=== PATIENT | female | born 1950 | race Caucasian/White ===

== ENCOUNTER 2022-09-07 10:13 | Outpatient (RCR) | payer MEDICARE, BC, SELFPAY ==
--- NOTE | 2022-09-07 11:09 | PT.OPEX ---
INITIAL EVAL MEDICARE REQUIRES SIGNAUTRE PT [facility] Outpatient Eval PT [facility] Outpatient Eval Start: 09/07/22 07:34 Freq: Status: Active Protocol: Document 09/07/22 07:37 EBONY (Rec: 09/07/22 11:08 EBONY [id number]) E-signed By Eliazar Chavez DPT Physical Therapy Outpatient Evaluation Insurance Information Insurance Name Medicare B Medical Diagnosis L knee OA, left knee TKA Treating Diagnosis muscle weakness, L knee pain Referring MD eliu lubin Subjective Subjective Khadra comes into clinic for a pre op visit for a L TKA on 09/14/22. Has had a TKA before for her R knee in 2008-. States the [facility] in does not require any steps to get into the house. Mentions everything inside the home is on one level as well. Her will be at home in order to provide assistance . Will be having her follow ups post operatively in [facility] at a outpatient clinic. Her biggest goals are to improve walking and ADLS Date of Surgery (If applicable) 09/14/22 Current Work Status Retired Objective Other/Pertinent Objective GAIT/FUNCTIONAL MOBILITY ambulates with decreased pace, decreased TKE on L KNEE ROM R 0-115 L 7-102 LLE MMT: Hip flexion: R 5/5 L 4-/5 Hip abduction: R 4/5 L4- /5 Knee flexion: R 4+/5 L 4/5 Knee extension: R 4+/5 L4- /5 TX: long sitting quad set x10 w/5 sec isometric hold performed ankle pumps x10 supine hamstring sets x10 w/5 sec isometric hold supine SAQ x10 w/cueing for isometric contraction at top of arc of motion with slow eccentric supine SLR flexion x10 w/ cueing for isometric contraction at top of arc of motion with slow eccentric supine heel slide x 10 w/3-5 sec hold at end range holding for stretch seated LAQ x10 w/cueing for isometric contraction at top of arc of motion with slow eccentric seated heel slides x5 with 30 sec holds into stretch passive knee ext stretch x 1 min - education on longer duration post-op educated on frequency to perform HEP post operatively Assessment Assessment/Impression Pt is a 72 yr old female who presents with concerns of L knee pain. Signs and symptoms likely indicating / consistent with L knee OA . Patient also has notable objective findings including impaired gait mechanics, limited ROM, impaired balance, decreased strength also likely contributing to the problem. Patient is a good candidate for skilled therapy to target deficits described above. Skilled PT intervention is necessary for use of therapeutic exercise manual therapy, neuromuscular re- education, gait training, and therapeutic activity. Functional impairments include difficulty with: walking, standing, transfers . See appropriate sections of PT eval for complete list of goals and POC. D/C plan and criteria is for pt to achieve the goals as listed below or until max rehab potential is met. Pt was agreeable with plan of care and goals established Plan of Care Rehabilitation Potential Good Physical Therapy Goals STG Pt will be independent with HEP within 1 visit to allow for independence and continued improvement past formal therapy-met Coordination/Communication With Referral Source Treatment Plan/Direct Interventions Gait Training,Joint Mobilization,Manual Therapy, Neuromuscular Re-ed,Self-Care/ Home Management,Therapeutic Activities,Therapeutic Exercises Frequency/Duration 1 visit for pre op- follow up elsewhere Patient Will Be Discharged From Therapy Independent w/HEP Evaluation Billing Untimed Code Treatment Minutes 15 Complexity Low Certification Information Initial Certification Date 09/07/22 Ending Certification Date 12/01/22 Physician Comment/Change : Physician NPI Number #
== END 2023-02-03 23:59 | disposition home or self-care (01) ==
PROVIDERS: PCP Nurse Practitioner Family; Visit Provider Orthopaedic Surgery
DX: Z01.818 Encounter for other preprocedural examination (principal); M17.12 Unilateral primary osteoarthritis, left knee; M62.81 Muscle weakness (generalized); M25.562 Pain in left knee; Z96.651 Presence of right artificial knee joint; Z51.89 Encounter for other specified aftercare
CPT/HCPCS: 97110; 97161

== ENCOUNTER 2022-09-14 08:34 | Day surgery (SDC) | payer MEDICARE, BC, SELFPAY ==
[2022-09-14] VITALS (22 sets, daily range): BP systolic 101–178; BP diastolic 47–90; PULSE 50–72; RESP 12–20; TEMP 35.6–36.4; O2SAT 92–99; BMI 29.0
[2022-09-14] MEDS: LACTATED RINGERS 1000 ML 1,000 ML 100 ML IV (08:45)
[2022-09-14] MEDS: OXYCODONE (CR) 10 MG TAB.ER.12H PO (09:25)
[2022-09-14] MEDS: SODIUM CHLORIDE 0.9 % (FLUSH) 10 ML SYRINGE IVF (09:26)
[2022-09-14] MEDS: ACETAMINOPHEN 500 MG TABLET 1000 MG PO ×3 (09:26→22:18)
--- NOTE | 2022-09-14 09:31 | W.ANESCHARGE ---
Anesthesia Charges Start Date/Time Anesthesia Start Date: 09/14/22 Anesthesia Start Time: 10:13 Stop Date/Time Anesthesia Stop Date: 09/14/22 Anesthesia Stop Time: 12:24 Summary Extremes of Age - Over 70 or under 1: MDA
[2022-09-14] MEDS: fentaNYL 100 MCG/2 ML inj IVP (09:41)
[2022-09-14] MEDS: MIDAZOLAM HCL 1 MG/ML inj IVP (09:41)
--- NOTE | 2022-09-14 09:46 | SUR.PREOP ---
TIME?OUT:?0940 PT/RN/MDA?VERIFICATION?OF?SURGICAL?SITE Left Knee,?PROCEDURE Adductor Block,?AND?CONSENT OBTAINED?PRIOR?TO?INVASIVE?PROCEDURE.
--- NOTE | 2022-09-14 09:49 | P.NB_ITS ---
Nerve Block Nerve Block Time Seen by Provider: 09:44 Date Seen: 09/14/22 Type of block requested by surgeon for post-operative analgesia: adductor canal Side: left Time out performed: Yes Verification of patient name: Yes Verification of date of : Yes Site marking: site marked Name of person performing procedure: Guilherme Continuous monitoring Was continuous monitoring of O2 sat, B/P, monitoring coordinator, recorded every 15 minutes?: Yes Procedure Checklist: sterile prep, needles and gloves Ultrasound guided. Images saved: Yes Medications given in 5ml increments after negative aspiration: Ropivicaine %: 0.5 mL: 20 Needle gauge: 20 Decadron (mg): 10 Precedex (mcg): 25 Patient tolerated procedure well: Yes Additional comments: Needle noted adjacent to nerve Block Charges Block Charge (with Pro Fee): Femoral Nerve Use of Ultrasound Machine for Block: Yes- US Guidance/pain block
--- NOTE | 2022-09-14 09:49 | W.PM.NB ---
Nerve Block Nerve Block Time Seen by Provider: 09:45 Date Seen: 09/14/22 Type of block requested by surgeon for post-operative analgesia: geniculars Side: left Time out performed: Yes Verification of patient name: Yes Verification of date of : Yes Site marking: site marked Name of person performing procedure: Guilherme Continuous monitoring Was continuous monitoring of O2 sat, B/P, padding machine operator, recorded every 15 minutes?: Yes Procedure Checklist: sterile prep, needles and gloves Medications given in 5ml increments after negative aspiration: Ropivicaine %: 0.5 mL: 9 Needle gauge: 25 Patient tolerated procedure well: Yes Block Charges Block Charge (with Pro Fee): Genicular Nerve Block Use of Ultrasound Machine for Block: No
[2022-09-14] MEDS: CEFAZOLIN 2 GM INJ IVP (10:23)
[2022-09-14] MEDS: TRANEXAMIC ACID 100 MG/ML INJ 1000 MG IV (10:28)
--- NOTE | 2022-09-14 11:30 | CRLHL7_ITS ---
For Patients: As a result of the Cures Act, medical imaging exams and procedure reports are released immediately into your electronic medical record. You may view this report before your referring provider. If you have questions, please contact your health care provider. INDICATION: Postoperative total knee arthroplasty TECHNIQUE: Knee radiograph 2 views left COMPARISON: 03/18/2021 FINDINGS: Bone: No acute fractures or aggressive bone lesions are identified. Joint: The patient is status post a total knee arthroplasty with patellar resurfacing. No significant knee effusion is seen. Soft tissue: Anterior skin, subcutaneous gas and joint gas are present from recent surgery. No radiopaque foreign bodies are seen. IMPRESSION: 1. There is an unremarkable postoperative appearance of the knee arthroplasty. Dictated by: Erik De Leon MD @ 09/14/2022 13:15:53 (Electronically Signed)
--- NOTE | 2022-09-14 11:32 | P.ORPRC_ITS ---
Procedure Note Date of procedure: 09/14/22 Procedure: PREOPERATIVE DIAGNOSIS: Left knee osteoarthritis POSTOPERATIVE DIAGNOSIS: Left knee osteoarthritis NAME OF OPERATION: Left total knee arthroplasty SURGEON: Germain Dow MD BARREL REAMER: Ivette Dorado PA-C ANESTHESIA: Spinal ESTIMATED BLOOD LOSS: 0 mL COMPLICATIONS: None SPECIMENS: None DRAINS: None PREOPERATIVE ANTIBIOTICS: Ancef 2 grams IMPLANTS: 1. J&J Attune #4 posterior stabilized femur 2. #4 fixed-bearing tibia 3. #4 posterior stabilized, 5 mm fixed-bearing polyethylene 4. 38 patella INDICATIONS: The patient is a 72-year-old with a longstanding history of severe, unrelenting left knee pain secondary to end-stage (grade IV) left knee osteoarthritis. Despite appropriate nonoperative management, including activity modification, anti-inflammatories, ybau-zau-qrqhoef pain medication, bracing, physical therapy, and injections they continue to have pain and disability. Operative intervention was offered. The risks, benefits and expected outcomes were discussed in detail. These included but were not limited to: Infection, bleeding, injury to blood vessel or nerve, venous thromboembolism. All questions were answered to their satisfaction. Use of an assistant to the director was necessary throughout the case for patient positioning and safety, soft tissue retraction, and closure. PROCEDURE: Spinal anesthesia was administered. The patient was placed supine on the operating table. The assistant to the director made sure the patient was positioned appropriately. The lower extremity was prepped and draped in the usual sterile fashion. The limb was exsanguinated with the Joshua bandage. The pneumatic tourniquet was inflated to 300 mmHg. A standard anterior incision was made with the knee in flexion. Subcutaneous dissection was sharply taken through fascial layer #1. Full-thickness medial and lateral flaps were elevated. The assistant to the director retracted the soft tissues and protected them throughout the case. A standard medial parapatellar approach was made. The patella was everted. The infrapatellar fat pad was preserved. The m enisci and cruciate ligaments were sharply d?brided. Marginal osteophytes were d?brided with the rongeur. The drill was used to penetrate the femoral canal. The canal was aspirated and irrigated with pulse lavage. The intramedullary femoral guide was placed for a 5-degree valgus cut, removing 10 mm off the distal femur. The saw was used to make the cut. Whitesides line and the trans epicondylar axis were marked. The femoral sizing guide was pinned onto the distal femur. Three degrees of external rotation nicely parallels the transepicondylar axis. Pins were placed for posterior referencing. The four-in-one cutting guide was pinned onto the distal femur. The anterior, posterior, and chamfer cuts were made. The assistant to the director protected the collateral ligaments. The box cutting guide was pinned. The box cuts were made. The boxed trial was placed and was an excellent fit. Drill holes for the lugs were made. Attention was then turned to the proximal tibia. The extramedullary tibial guide was placed for a neutral varus/valgus cut with 5 degrees of posterior slope, removing 1 mm based off the medial tibial surface. The assistant to the director protected the collateral ligaments and the neurovascular bundle. The saw was used to make the cut. Trial components were placed. The knee was nicely balanced in both flexion and extension. The trial components were removed. The tray was placed in appropriate rotation, parallel to our tibial cutting pins. It was pinned by the assistant to the director and the drill and the punch were used. The tray was removed. The punch was used again. We placed a bone plug in the femoral canal. Attention was then turned to the patella. [place] patellar thickness was 21 mm. The lobster claw resection guide was used with the 7.5 mm afshin. The saw was used to make the cut. Drill holes were made by the assistant to the director. The trial was placed and was an excellent fit. Cancellous surfaces were irrigated with pulse lavage and thoroughly dried by the assistant to the director. We cemented the tibial component, then the femoral component. We impacted the 5 mm polyethylene onto the tibial tray. The knee was brought into full extension. We then cemented the patellar component. Excessive cement was removed. The cement was allowed to harden. The knee was taken through a range of motion and was found to be nicely balanced in both flexion and extension. The patella tracks centrally. The assistant to the director did a three minute dilute Betadine solution soak. The assistant to the director irrigated the wound with 3 liters of normal saline via pulse lavage. The assistant to the director reapproximated the extensor mechanism with #1 Vicryl in an interrupted [id number] fashion. The assistant to the director then ran the extensor mechanism with a #1 PDO Stratafix. The assistant to the director closed the subcutaneous tissues with a 3-0 Stratafix and the skin with a running 3-0 Stratafix in a subcuticular fashion. Glue was used to seal the skin. The assistant to the director placed a dry dressing, EMILIANO stocking, and Polar Care. Sponge and needle counts were correct x2. The patient tolerated the procedure well. There were no apparent complications. They were carefully transferred to the hospital bed and taken to the postanesthesia care unit in satisfactory condition. PLAN: The patient will be mobilized with physical therapy. Aspirin will be used for DVT prophylaxis. They will be discharged to home once medically appropriate.
--- NOTE | 2022-09-14 12:25 | P.ANES_ITS ---
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
--- NOTE | 2022-09-14 14:46 | PC.NURSE ---
Patient came to the floor from PACU around 1300. Alert and orientated. is at bedside. Left knee dressing is clean, dry, and intact and is currently denying any pain. Tolerating regular diet with no nausea or vomiting.
[2022-09-14] MEDS: CEFAZOLIN 1 GM in 0.9 % SODIUM CHLORIDE Mini-bag 100 ML IVPB (16:08)
--- NOTE | 2022-09-14 17:11 | PC.NURSE ---
PATIENT PLEASANT AND COOPERATIVE, ALERT AND ORIENTED, UP SBA WITH WALKER AND BELT TOLERATING WELL, REPORTING NO PAIN TO LEFT KNEE, DRESSING CDI, CYRO CUFF TO SITE, TOLERATING REGULAR DIET NO NAUSEA OR VOMITING, USING IS TO 2500.
--- NOTE | 2022-09-14 17:38 | PM.IMCN1 ---
Date of Consult Patient: Debra Patient Consult date: 09/14/22 Requesting Physician: Orthopedics Primary Care Provider: Marya Serrano CNP Consult Narrative Reason for consult: Perioperative management of HTN, HLD, GERD Narrative: Khadra Huertas is a 72 year old woman with end-stage left gonarthrosis who presents for elective left total knee arthroplasty. This is undertaken successfully per Dr. Dow, orthopedic surgeon, [facility], on 09/14/2022. No apparent perioperative complications. Pain well managed at this time. Review of Systems Status of ROS: Reports: 10 or more systems reviewed and unremarkable except as noted in History and below Narrative: Denies chest heaviness, pressure, tightness, or pain. Denies dyspnea at rest, paroxysmal nocturnal dyspnea, orthopnea. Denies cough. Denies syncope or near-syncope. Denies palpitations or chest fluttering. Denies nausea or vomiting. Denies edema. Has worked with her shearer helper, methotrexate has been on hold will continue to be on hold for a while. Will continue to work with her shearer helper. Bowel bladder function are satisfactory. Has hardly taking her Linzess as of lately for constipation due to the fact that she has not needed to do so. Has had multiple prior joint replacement surgeries. Tolerated these without any complications. No recent fevers, rigors, diaphoresis. No recent illnesses. No recent trauma, injury, or travel. Designates her as her power of personal injury attorney for health should that be required. Requests full resuscitation in the event of cardiopulmonary demise. [facility] Medical History (Updated 09/14/22 @ 17:47 by Cory Pearce MD) Anxiety Central spinal stenosis Chronic pain disorder Closed fracture of left distal radius Colonic polyp Degenerative joint disease Depression Fibromyalgia Foraminal stenosis of cervical region GERD with esophagitis Hyperlipidemia Hypertension Insomnia Irritable bowel syndrome Neck pain Osteopenia Osteoporosis Rheumatoid arthritis Rosacea Tubular adenoma Surgical History H/O cervical discectomy History of appendectomy History of carpal tunnel release of both wrists History of hysterectomy History of right hip replacement History of thoracic spinal fusion History of tonsillectomy and adenoidectomy S/P cervical spinal fusion (~01/2015) Status post open reduction and internal fixation (ORIF) of fracture Status post reverse total arthroplasty of left shoulder (04/05/16) Status post total right knee replacement Family History Father Lung cancer Mother Alzheimers disease Sister Uterine cancer Social History Smoking Status: Former smoker Do you use any of these nicotine containing products: None How often do you have a drink containing alcohol: monthly or less Alcohol type: wine How many standard drinks containing alcohol do you have on a typical day: 1 or 2 How often do you have six or more drinks on one occasion: Never AUDIT-C Alcohol total score: 1 Non-prescribed substance use: denies use Caffeine: Yes (coffee, 1 cup/am) Meds Home Medications and Allergies Home Medications Medication Instructions Recorded Confirmed Type amlodipine 10 mg tablet 10 mg PO 03/26/22 06/30/22 History amoxicillin 500 mg capsule 500 mg PO QDAY 03/26/22 06/30/22 History atenolol 25 mg tablet 25 mg PO DAILY 03/26/22 09/14/22 History atorvastatin 10 mg tablet 10 mg PO 03/26/22 06/30/22 History calcium carbonate 600 mg-vitamin 1 tab PO BID 03/26/22 09/14/22 History D3 20 mcg (800 unit) tablet folic acid 1 mg tablet 1 mg PO DAILY 03/26/22 09/14/22 History methotrexate sodium 2.5 mg tablet 2.5 mg PO .Every 7 Days 03/26/22 09/14/22 History multivitamin 1 tab PO QDAY 03/26/22 09/14/22 History polyethylene glycol 3350 17 17 g PO DAILY 03/26/22 09/14/22 History gram/dose oral powder sertraline 100 mg tablet 100 mg PO DAILY 03/26/22 09/14/22 History zolpidem 5 mg tablet 5 mg PO .Bedtime as needed PRN 03/26/22 09/14/22 History Allergies Allergy/AdvReac Type Severity Reaction Status Date / Time tolmetin Allergy tongue Verified 09/14/22 08:48 swelling Exam Narrative: Exam Narrative: Appears comfortable and in no acute distress. Vision and hearing are grossly normal. Alert, oriented to self, place, time, situation. Friendly, cooperative, articulate. Mood and affect are congruent. Neck is supple. No JVD or hepatojugular reflux. Lungs are clear to auscultation without wheezing, rhonchi, or rales. No CVA tenderness. Heart tones with regular rhythm, occasional extra beat. No murmur, gallop, or rub. Abdomen with active bowel sounds, soft, nontender. Extremities without edema. Const: Vital Signs, click to edit/add: Vital Signs - 24 hr 09/14/22 09:03 09/14/22 09:35 09/14/22 09:40 Temperature 97.4 F L Pulse Rate 55 L 58 L 57 L Pulse Rate [Right Pulse Oximeter] Respiratory Rate 16 16 16 Blood Pressure 146/74 H 142/86 H 132/62 Blood Pressure [Ri ght Arm] Pulse Oximetry 96 96 95 Oxygen Delivery Me thod Room Air Nasal Cannula Nasal Cannula Oxygen Flow Rate 2 2 09/14/22 09:45 09/14/22 12:28 09/14/22 12:34 Temperature 97.1 F L Pulse Rate 58 L 55 L 52 L Pulse Rate [Right Pulse Oximeter] Respiratory Rate 16 20 20 Blood Pressure 127/62 110/57 L 115/61 Blood Pressure [Ri ght Arm] Pulse Oximetry 96 98 99 Oxygen Delivery Me thod Nasal Cannula OxyMask OxyMask Oxygen Flow Rate 2 3 3 09/14/22 12:38 09/14/22 12:45 09/14/22 12:50 Temperature 97.2 F L Pulse Rate 52 L 55 L 51 L Pulse Rate [Right Pulse Oximeter] Respiratory Rate 20 20 20 Blood Pressure 126/47 L 126/76 125/59 L Blood Pressure [Ri ght Arm] Pulse Oximetry 92 96 99 Oxygen Delivery Me thod Room Air Room Air Nasal Cannula Oxygen Flow Rate 2 09/14/22 12:56 09/14/22 13:03 09/14/22 13:15 Temperature 96.3 F L Pulse Rate 52 L 50 L Pulse Rate [Right Pulse Oximeter] 50 L Respiratory Rate 20 14 12 Blood Pressure 138/62 Blood Pressure [Ri ght Arm] 122/90 H 139/85 Pulse Oximetry 98 97 Oxygen Delivery Me thod Nasal Cannula Nasal Cannula Nasal Cannula Oxygen Flow Rate 2 2 1 09/14/22 13:30 09/14/22 14:30 09/14/22 13:45 Temperature 96.1 F L Pulse Rate Pulse Rate [Right Pulse Oximeter] 56 L 57 L 57 L Respiratory Rate 14 14 14 Blood Pressure Blood Pressure [Ri ght Arm] 138/60 149/80 H 145/61 H Pulse Oximetry 95 96 97 Oxygen Delivery Me thod Nasal Cannula Nasal Cannula Nasal Cannula Oxygen Flow Rate 1 1 1 09/14/22 14:00 09/14/22 15:00 09/14/22 15:00 Temperature 96.6 F L Pulse Rate Pulse Rate [Right Pulse Oximeter] 55 L 50 L Respiratory Rate 14 16 Blood Pressure Blood Pressure [Ri ght Arm] 140/64 H 151/72 H Pulse Oximetry 97 95 95 Oxygen Delivery Me thod Nasal Cannula Nasal Cannula Oxygen Flow Rate 1 1 09/14/22 16:00 09/14/22 17:00 Temperature 97.3 F L Pulse Rate Pulse Rate [Right Pulse Oximeter] 62 63 Respiratory Rate 16 16 Blood Pressure Blood Pressure [Ri ght Arm] 140/63 H 101/59 L Pulse Oximetry 93 92 Oxygen Delivery Me thod Nasal Cannula Room Air Oxygen Flow Rate 1 Assessment and Plan Assessment and plan (1) Osteoarthritis of left knee: Status: Acute (2) Status post total left knee replacement: Problem comment: 09/14/2022, Dr. Dow Status: Acute (3) Hyperlipidemia: Status: Acute Assessment and Plan: Will continue with her atorvastatin. (4) Hypertension: Status: Acute Assessment and Plan: Will resume her antihypertensive medications, amlodipine and hydrochlorothiazide. (5) GERD with esophagitis: Status: Acute Assessment and Plan: Continue with her omeprazole. (6) Anxiety: Status: Acute Assessment and Plan: Continue with her sertraline. (7) Depression: Status: Acute Assessment and Plan: Continue with her sertraline. Plan 1. The hospitalist service will be available to support the orthopedic surgery team if needed during the course hospitalization in helping the patient with her medical conditions as specified above and as needed. 2. Anticipate patient be able to return home tomorrow without any adjustment in her medication regimen for the conditions specified above. 3. Agree with perioperative prophylactic antibiotics. 4. Agree with postoperative venous thromboembolism prophylaxis as specified per the orthopedic surgery team.
[2022-09-14] MEDS: ATORVASTATIN 10 MG TABLET PO (20:26)
[2022-09-14] MEDS: SENNOSIDES 1 TAB TABLET 2 TAB PO (20:26)
[2022-09-14] MEDS: ASPIRIN 81 MG TABLET EC PO (20:26)
[2022-09-15] MEDS: 0.9 % SODIUM CHLORIDE 250 ml IV (00:20)
[2022-09-15] MEDS: CEFAZOLIN 1 GM in 0.9 % SODIUM CHLORIDE Mini-bag 100 ML IVPB ×2 (00:20→08:06)
[2022-09-15 03:00] VITALS: BP 162/67; PULSE 61; RESP 16; TEMP 36.3; O2SAT 91
[2022-09-15] MEDS: ACETAMINOPHEN 500 MG TABLET 1000 MG PO (03:47)
--- NOTE | 2022-09-15 05:15 | PC.NURSE ---
[id number] Pt slept well during night, rating pain 0/10 throughout shift, scheduled tylenol administered, no PRN pain meds needed at this time. Educated pt on importance of telling nurse when pain sensation is felt to begin pain management to keep pain at a tolerable level. Dressing to L knee C/D/I, cyro cuff to site throughout shift. Ambulating to BR with walker, GB, SBA, her L knee did buckle twice while ambulating, pt able to catch herself with nurse at side. denies N/V.
[2022-09-15 06:41] LABS: Basophils Percent Auto 0.1 % (0.0-3.0); Hematocrit 39.1 % (33.0-51.0); Immature Granulocytes Pct Auto 0.1 %; Lymphocytes Percent Auto 9.4 % (20-44); Mean Corpuscular HGB Conc 33 gm/dL (32-36); Mean Corpuscular Hemoglobin 31 pg (26-34); Mean Corpuscular Volume 92 fL (80-100); Monocytes Percent Auto 8.4 % (0.0-11.0); Platelet Count* 275 K/uL (140-440); RDW Coefficient of Variation % 14.2 % (11.5-15.5); Red Blood Count 4.23 m/uL (4.00-5.20)
[2022-09-15 06:48] LABS: Slide Review Reflex No
[2022-09-15 07:00] VITALS: BP 153/69; PULSE 57; RESP 14; TEMP 36.3; O2SAT 96
[2022-09-15 07:00] LABS: Sodium* 137 mmol/L (135-149)
[2022-09-15 07:01] LABS: Potassium* 3.8 mmol/L (3.6-5.1)
[2022-09-15 07:04] LABS: Blood Urea Nitrogen* 12 mg/dL (7-30); Creatinine* 0.4 mg/dL (0.5-1.5); Est. Creatinine Clearance* 36.53; Estimated Glomerular Filt Rate 105 ml/min
[2022-09-15 07:08] LABS: INR 1.03 (0.91-1.10); Prothrombin Time 14.2 Seconds
--- NOTE | 2022-09-15 08:48 | PM.ORPN ---
Subjective Subjective Time Seen by Provider: 07:45 Date Seen: 09/15/22 Principal diagnosis: Left total knee arthroplasty 09/14/2022 Interval history: Khadra is doing well this morning. She will discharge to home later today. She denies shortness of breath, dizziness, nausea, vomiting, lightheadedness. Ortho Exam Narrative Exam Narrative: Alert and oriented x3. Patient is in no acute distress. Converses without labored breathing. Hearing is grossly intact. Ambulates with a walker. Examination of the left knee shows the dressing is intact, no erythema or ecchymosis. No sign of infection. No warmth. Mild effusion. Mild soft tissue edema. Bilateral calves are soft and nontender. CMS intact left lower extremity. Const Vital Signs, click to edit/add: Vital Signs - 24 hr 09/14/22 09:03 09/14/22 09:35 09/14/22 09:40 Temperature 97.4 F L Pulse Rate 55 L 58 L 57 L Pulse Rate [Right Pulse Oximeter] Respiratory Rate 16 16 16 Blood Pressure 146/74 H 142/86 H 132/62 Blood Pressure [Right Arm] Pulse Oximetry 96 96 95 Oxygen Delivery Method Room Air Nasal Cannula Nasal Cannula Oxygen Flow Rate 2 2 09/14/22 09:45 09/14/22 12:28 09/14/22 12:34 Temperature 97.1 F L Pulse Rate 58 L 55 L 52 L Pulse Rate [Right Pulse Oximeter] Respiratory Rate 16 20 20 Blood Pressure 127/62 110/57 L 115/61 Blood Pressure [Right Arm] Pulse Oximetry 96 98 99 Oxygen Delivery Method Nasal Cannula OxyMask OxyMask Oxygen Flow Rate 2 3 3 09/14/22 12:38 09/14/22 12:45 09/14/22 12:50 Temperature 97.2 F L Pulse Rate 52 L 55 L 51 L Pulse Rate [Right Pulse Oximeter] Respiratory Rate 20 20 20 Blood Pressure 126/47 L 126/76 125/59 L Blood Pressure [Right Arm] Pulse Oximetry 92 96 99 Oxygen Delivery Method Room Air Room Air Nasal Cannula Oxygen Flow Rate 2 09/14/22 12:56 09/14/22 13:03 09/14/22 13:15 Temperature 96.3 F L Pulse Rate 52 L 50 L Pulse Rate [Right Pulse Oximeter] 50 L Respiratory Rate 20 14 12 Blood Pressure 138/62 Blood Pressure [Right Arm] 122/90 H 139/85 Pulse Oximetry 98 97 Oxygen Delivery Method Nasal Cannula Nasal Cannula Nasal Cannula Oxygen Flow Rate 2 2 1 09/14/22 13:30 09/14/22 14:30 09/14/22 13:45 Temperature 96.1 F L Pulse Rate Pulse Rate [Right Pulse Oximeter] 56 L 57 L 57 L Respiratory Rate 14 14 14 Blood Pressure Blood Pressure [Right Arm] 138/60 149/80 H 145/61 H Pulse Oximetry 95 96 97 Oxygen Delivery Method Nasal Cannula Nasal Cannula Nasal Cannula Oxygen Flow Rate 1 1 1 09/14/22 14:00 09/14/22 15:00 09/14/22 15:00 Temperature 96.6 F L Pulse Rate Pulse Rate [Right Pulse Oximeter] 55 L 50 L Respiratory Rate 14 16 Blood Pressure Blood Pressure [Right Arm] 140/64 H 151/72 H Pulse Oximetry 97 95 95 Oxygen Delivery Method Nasal Cannula Nasal Cannula Oxygen Flow Rate 1 1 09/14/22 16:00 09/14/22 17:00 09/14/22 18:26 Temperature 97.3 F L 97.2 F L Pulse Rate Pulse Rate [Right Pulse Oximeter] 62 63 63 Respiratory Rate 16 16 16 Blood Pressure Blood Pressure [Right Arm] 140/63 H 101/59 L 136/50 L Pulse Oximetry 93 92 93 Oxygen Delivery Method Nasal Cannula Room Air Nasal Cannula Oxygen Flow Rate 1 1 09/14/22 19:00 09/14/22 23:00 09/14/22 23:00 Temperature 97.6 F 97.6 F Pulse Rate Pulse Rate [Right Pulse Oximeter] 65 72 Respiratory Rate 16 18 Blood Pressure Blood Pressure [Right Arm] 138/60 178/64 H Pulse Oximetry 93 93 93 Oxygen Delivery Method Nasal Cannula Nasal Cannula Oxygen Flow Rate 1 1 09/15/22 03:00 09/15/22 07:00 Temperature 97.3 F L 97.3 F L Pulse Rate Pulse Rate [Right Pulse Oximeter] 61 57 L Respiratory Rate 16 14 Blood Pressure Blood Pressure [Right Arm] 162/67 H 153/69 H Pulse Oximetry 91 96 Oxygen Delivery Method Nasal Cannula Room Air Oxygen Flow Rate 1 Assessment and Plan Assessment and plan (1) Osteoarthritis of left knee: Status: Acute (2) Status post total left knee replacement: Problem details: 09/14/2022, Dr. Dow Status: Acute Assessment and Plan: Plan for discharge is today to home if they meet discharge criteria. DVT prophylaxis includes aspirin 81 mg twice daily x1 month, Cristopher stockings x1 month may remove for 1 hr per day, frequent ambulation Remove dressing in 1 week. Observe wound and phone Orthopedics with any questions or concerns Return to clinic in 1 week for a wound check Return to clinic in [address] Dow Minimize narcotic use. Wean off and discontinue soon as possible. Activities as tolerated. No strenuous activity. Outpatient physical therapy as scheduled. Ice and elevate the operative extremity. No restriction on ice. (3) Hyperlipidemia: Status: Acute (4) Hypertension: Status: Acute (5) GERD with esophagitis: Status: Acute (6) Anxiety: Status: Acute (7) Depression: Status: Acute
[2022-09-15] MEDS: AMLODIPINE 10 MG TABLET PO (09:23)
[2022-09-15] MEDS: ASPIRIN 81 MG TABLET EC PO (09:23)
[2022-09-15] MEDS: SERTRALINE 100 MG TABLET PO (09:23)
[2022-09-15] MEDS: SENNOSIDES 1 TAB TABLET 2 TAB PO (09:24)
[2022-09-15] MEDS: FOLIC ACID 1 MG TABLET PO (09:24)
[2022-09-15] MEDS: atenoloL 25 MG TABLET PO (09:24)
--- NOTE | 2022-09-15 09:55 | PC.SOCIAL ---
Met with pt. to discuss discharge plans. Pt. will discharge today with spouse support. Pt. lives in a single level home and does not feel she will need any additional resources at discharge. Pt. is aware she can contact social services coordinator if she needs additional assistance.
--- NOTE | 2022-09-15 11:43 | PC.NURSE ---
Patient discharged to home via wheel chair with . VSS and education provided. No further questions asked.
== END 2022-09-15 11:04 | disposition home or self-care (01) ==
LOC: OR 08:36 → MEDSURG 08:40
PROVIDERS: PCP Nurse Practitioner Family; Visit Provider Orthopaedic Surgery
PROC: (CPT 27447; principal; 2022-09-14 10:30)
DX: M17.12 Unilateral primary osteoarthritis, left knee (principal); I10 Essential (primary) hypertension; K21.00 Gastro-esophageal reflux disease with esophagitis, without bleeding; F41.9 Anxiety disorder, unspecified; F32.A Depression, unspecified; G89.29 Other chronic pain; M48.02 Spinal stenosis, cervical region; M79.7 Fibromyalgia; M06.9 Rheumatoid arthritis, unspecified; E78.5 Hyperlipidemia, unspecified; M81.0 Age-related osteoporosis without current pathological fracture
CPT/HCPCS: 27447; 01402; 36415; 73560; 76942; 82565; 84132; 84295; 84520; 85025; 85610; 94761; 97110; 97116; 97161; 97165; 97535; 99100; A9270; C1776; J0690; J1100; J2250; J2704; J2795; J3010; J7050; J7120

== ENCOUNTER 2024-05-24 06:25 | Outpatient (CLI) | payer MEDICARE, BC, SELFPAY ==
[2024-05-24 07:13] VITALS: BP 144/50; PULSE 60; RESP 16; TEMP 36.8; O2SAT 94
--- NOTE | 2024-05-24 07:30 | P.ORPRC_ITS ---
Procedure Note Date of procedure: 05/24/24 Procedure: PREOPERATIVE DIAGNOSIS: Right hip abductor tendinopathy/greater trochanteric bursitis POSTOPERATIVE DIAGNOSIS: Right hip abductor tendinopathy/greater trochanteric bursitis NAME OF OPERATION: Percutaneous tenotomy SURGEON: Germain Dow MD ROAD TRAFFIC CONTROLLER: Ivette Dorado PA-C ANESTHESIA: Local ESTIMATED BLOOD LOSS: 2 mL. COMPLICATIONS: None. SPECIMENS: None. DRAINS: None. PREOPERATIVE ANTIBIOTICS: None INDICATIONS: The patient is a 73-year-old with a history of right hip pain secondary to the above diagnoses. Despite appropriate non operative management, they continue to have symptoms. Operative intervention was recommended. The risks, benefits and expected outcomes were discussed in detail. These included but were not limited to: Infection, bleeding, injury to blood vessel or nerve, venous thromboembolism. All questions were answered to their satisfaction. PROCEDURE: The patient was placed in the lateral decubitus position. The right hip was imaged in the long and short axes with the ultrasound transducer. Normal acoustic landmarks were identified. We then sterilely prepped and draped the skin, and used a sterile probe cover with sterile gel. Local anesthesia was established with 10 mL of a solution containing 2 % lidocaine without epinephrine, 0.5% Marcaine without epinephrine and sodium bicarbonate. An 11 blade was used to incise the skin. The Tenex TX 2 micro tip was used to treat the abductor tendon for a total of 3 minutes and 54 seconds. The incision was Steri-Stripped closed. A dry dressing was applied. Sponge and needle counts were correct x2. The patient tolerated the procedure well. There were no apparent complications. They were discharged to home in satisfactory condition. PLAN: The patient may weightbear as tolerates. Ice, Tylenol and ibuprofen can be used for discomfort. They may ramp up activity as the hip will allow. They will follow up in the office in 6 weeks to assess their progress.
[2024-05-24 07:33] VITALS: BP 147/60; PULSE 54; RESP 16; O2SAT 96
== END 2024-05-24 07:43 | disposition home or self-care (01) ==
PROVIDERS: PCP Nurse Practitioner Family; Visit Provider Orthopaedic Surgery
DX: M70.61 Trochanteric bursitis, right hip (principal)
CPT/HCPCS: 27006; 76942; J0665